=== PATIENT | female | born 1975 | race American Indian/Alaskan Native ===

== ENCOUNTER 2021-10-23 15:43 | Outpatient (CLI) | payer OTHER ==
--- NOTE | 2021-10-23 22:27 | XRay Report ---
Left foot, 3 views HISTORY: Injury of the lesser toe FINDINGS: No comparisons. There is an acute minimally displaced fracture of the proximal phalanx of the fourth toe. No addition al fracture. No joint malalignment. Lisfranc interval is preserved. There is soft tissue swelling of the lateral forefoot. IMPRESSION: Acute minimally displaced fracture of the proximal phalanx of the fourth toe Signer Name: Avtar Swenson MD Signed: 10/23/2021 10:23 PM Workstation Name: [id number]
== END 2021-10-23 15:44 | disposition home or self-care (01) ==
LOC: XRAY 15:43
PROVIDERS: ATTEND Orthopaedic Surgery
DX: S92.515A Nondisplaced fracture of proximal phalanx of left lesser toe(s), initial encounter for closed fracture (principal); X58.XXXA Exposure to other specified factors, initial encounter; Y93.89 Activity, other specified; Y92.89 Other specified places as the place of occurrence of the external cause; Y99.8 Other external cause status